=== PATIENT | male | born 1965 | race Caucasian/White ===

== ENCOUNTER 2018-09-15 11:31 | Emergency (ER) | payer MEDICAID, MEDICARE ==
[2018-09-15] MEDS ORDERED: HYDROCODONE/APAP 5/325MG TABLET PO ONE (11:51)
--- NOTE | 2018-09-15 12:02 | Emergency Department Record ---
History of Present Illness - General Chief Complaint: Ankle/Foot Injury Stated Complaint: LEFT LOWER LEG Time Seen by Provider: 09/15/18 11:48 Source: Patient Mode of Arrival: Wheelchair Limitations: No limitations - History of Present Illness Initial Comments: pt states foot and leg collapsed under him last night. it continues to hurt. pt has club feet Complaint: Leg injury, Ankle injury, Foot injury Onset/Timin -: Hour(s) Injury: Leg: Left, Ankle: Left, Foot: Left Type of Injury: Other Place: Home Severity: Mild Severity scale (1-10): 7 Improves With: Nothing Worsens With: Nothing Context: Fall, Walking Associated Symptoms: Swelling, Unable to bear weight - Related Data Previous Rx's Medication Instructions Recorded Hydrocodone/Acetaminophen [[place] 1 each PO Q6HR #12 tablet 09/15/18 5-325 Tablet] Allergies Allergy/AdvReac Type Severity Reaction Status Date / Time No Known Allergies Allergy HYPERSENSIT Verified 09/15/18 11:43 IVITY Travel Screening - Travel/Exposure Within Last 30 Days Have you traveled within the last 30 days?: No - Travel/Exposure Within Last Year Have you traveled outside the [place] in the last year?: No - Additonal Travel Details Have you been exposed to anyone with a communicable illness?: No - Travel Symptoms Symptom Screening: None Review of Systems Reviewed: No additional complaints except as noted below Constitutional: Reports: As per HPI. Denies: Chills, Fever, Malaise, Night sweats, Weakness, Weight change Eyes: Reports: As per HPI. Denies: Eye discharge, Eye pain, Photophobia, Vision change ENT: Reports: As per HPI. Denies: Congestion, Dental pain, Ear pain, Epistaxis , Hearing loss, Throat pain Respiratory: Reports: As per HPI. Denies: Cough, Dyspnea, Hemoptysis, Stridor, Wheezes Cardiovascular: Reports: As per HPI. Denies: Arrhythmia, Chest pain, Dyspnea on exertion, Edema, Murmurs, Orthopnea, Palpitations, Paroxysmal nocturnal dyspnea, Rheumatic Fever, Syncope Endocrine: Reports: As per HPI. Denies: Fatigue, Heat or cold intolerance, Polydipsia, Polyuria Gastrointestinal: Reports: As per HPI. Denies: Abdominal pain, Constipation, Diarrhea, Hematemesis, Hematochezia, Melena, Nausea, Vomiting Genitourinary: Reports: As per HPI. Denies: Dysuria, Frequency, Hematuria, Incontinence, Retention, Testicular pain, Testicular mass, Urgency Musculoskeletal: Reports: As per HPI. Denies: Arthralgia, Back pain, Gout, Joint swelling, Myalgia, Neck pain Skin: Reports: As per HPI. Denies: Bruising, Change in color, Change in hair/ nails, Lesions, Pruritus, Rash Neurological: Reports: As per HPI. Denies: Abnormal gait, Confusion, Headache, Numbness, Paresthesias, Seizure, Tingling, Tremors, Vertigo, Weakness Psychiatric: Reports: As per HPI. Denies: Anxiety, Auditory hallucinations, Depression, Homicidal thoughts, Suicidal thoughts, Visual hallucinations Hematological/Lymphatic: Reports: As per HPI. Denies: Anemia, Blood Clots, Easy bleeding, Easy bruising, Swollen glands Past Medical History - SOCIAL HISTORY Smoking Status: Never smoker Alcohol Use: Occasional Drug Use: None - RESPIRATORY Hx Respiratory Disorders: No - CARDIOVASCULAR Hx Cardio Disorders: Yes Hx Hypertension: Yes Comment:: cholesterol - NEURO Hx Neuro Disorders: No - GI Hx GI Disorders: No - Hx Genitourinary Disorders: No - ENDOCRINE Hx Endocrine Disorders: No Hx Diabetes: No Hx Thyroid Disease: No - MUSCULOSKELETAL Hx Gout: Yes (right foot) Comment:: club feet as infant - PSYCH Hx Psych Problems: Yes Hx Depression: Yes - HEMATOLOGY/ONCOLOGY Hx Hematology/Oncology Disorders: No Family Medical History Any Significant Family History?: No Physical Exam - General General Appearance: Alert, Oriented x3, Cooperative, Mild distress - Head Head exam: Normal inspection - Eye Eye exam: Normal appearance, PERRL, EOMI Pupils: Normal accommodation - ENT ENT exam: Normal exam, Mucous membranes moist, Normal external ear exam, Normal orophraynx Ear exam: Normal external inspection. negative: External canal tenderness Nasal Exam: Normal inspection. negative: Discharge, Sinus tenderness Mouth exam: Normal external inspection, Tongue normal Teeth exam: Normal inspection. negative: Dental caries Throat exam: Normal inspection. negative: Tonsillar erythema, Tonsillar exudate - Neck Neck exam: Normal inspection, Full ROM. negative: Tenderness - Respiratory Respiratory exam: Normal lung sounds bilaterally. negative: Respiratory distress - Cardiovascular Cardiovascular Exam: Regular rate, Normal rhythm, Normal heart sounds - GI/Abdominal GI/Abdominal exam: Soft, Normal bowel sounds. negative: Tenderness - Rectal Rectal exam: Deferred - exam: Deferred - Extremities Extremities exam: Normal capillary refill, Tenderness. negative: Normal inspection, Full ROM Image of Full Body: 1 - tender, ecchymosis, deformity [club feet] - Back Back exam: Reports: Normal inspection, Full ROM. Denies: Muscle spasm, Rash noted, Tenderness - Neurological Neurological exam: Alert, CN II-XII intact, Normal gait, Oriented X3 - Psychiatric Psychiatric exam: Normal affect, Normal mood - Skin Skin exam: Dry, Intact, Normal color, Warm Course Vital Signs 09/15/18 11:34 Temperature 98.4 F Pulse Rate 70 Respiratory 18 Rate Blood Pressure 118/93 Pulse Ox [address] - Reevaluation(s) Reevaluation #1: 09/15/18 13:31 d/w dr barber Disposition Disposition: Discharge Clinical Impression: Bimalleolar fracture of left ankle Qualifiers: Encounter type: initial encounter Fracture type: closed Qualified Code(s): S82.842A - Displaced bimalleolar fracture of left lower leg, initial encounter for closed fracture Disposition: Home, Self-Care Instructions: Ankle Fracture (ED) Additional Instructions: ice and elevate foot. do not bear weight. follow up with dr ambriz office , call today and be seen today or tomorrow. return sooner if worse Prescriptions: Hydrocodone/Acetaminophen [[place] 5-325 Tablet] 1 each PO Q6HR #12 tablet Referrals: KOREY BARBER M.D. [MEDICAL DOCTOR] - Forms: Patient Portal Access Quality - Quality Measures Quality Measures: N/A - Blood Pressure Screening Does Patient Have Any of the Following: No Blood Pressure Classification: Hypertensive Reading Systolic Measurement: 118 Diastolic Measurement: 93 Screening for High Blood Pressure: < Pre-Hypertensive BP, F/U Documented > [ [id number]] Pre-Hypertensive Follow-up Interventions: Follow-up with rescreen every year.
[2018-09-15] MEDS ORDERED: IBUPROFEN 400 MG TABLET PO ONE (13:10)
--- NOTE | 2018-09-17 07:29 | RADIOLOGY REPORT ---
EXAM: FOOT, LEFT 3 VIEWS HISTORY: INJURY. TECHNIQUE: Three views of the left foot were performed. FINDINGS: There is diffuse osteopenia. There is a fracture deformity of the medial malleolus and distal fibula. Diffuse soft tissue swelling. Small calcaneal spur. IMPRESSION: 1. FRACTURE DEFORMITIES OF THE MEDIAL MALLEOLUS AND DISTAL FIBULA. UNDERLYING OSTEOPENIA. SOFT TISSUE SWELLING. 2. CALCANEAL SPUR. JOB NUMBER: [id number] MTDD
--- NOTE | 2018-09-17 07:31 | RADIOLOGY REPORT ---
EXAM: ANKLE LEFT 3 VIEWS HISTORY: FALL. TECHNIQUE: Three views of the left ankle were performed. FINDINGS: Osteopenia. Bimalleolar fracture deformities. There is widening of the medial joint space measuring 8.8 mm. There is soft tissue swelling. IMPRESSION: MINIMALLY DISPLACED BIMALLEOLAR FRACTURE DEFORMITIES. THERE IS WIDENING OF THE MEDIAL JOINT SPACE MEASURING 8.8 MM. THERE IS DIFFUSE SOFT TISSUE SWELLING. JOB NUMBER: [id number] [facility] SHOR[facility]
--- NOTE | 2018-09-17 07:33 | RADIOLOGY REPORT ---
EXAM: LOWER LEG, LEFT HISTORY: PAIN. TECHNIQUE: Two views of the left lower extremity were performed. FINDINGS: Redemonstrated bimalleolar fracture deformities. Soft tissue swelling , left ankle joint. The remainder of the osseous structures are intact. IMPRESSION: BIMALLEOLAR FRACTURE DEFORMITIES. SOFT TISSUE SWELLING. REMAINDER OF THE OSSEOUS STRUCTURES ARE INTACT. JOB NUMBER: [id number] MTDD
== END 2018-09-15 14:10 | disposition home or self-care (01) ==
LOC: ER 11:31
DX: S82.842A Displaced bimalleolar fracture of left lower leg, initial encounter for closed fracture (principal); X50.0XXA Overexertion from strenuous movement or load, initial encounter; Y92.009 Unspecified place in unspecified non-institutional (private) residence as the place of occurrence of the external cause; I10 Essential (primary) hypertension; M21.542 Acquired clubfoot, left foot
CPT/HCPCS: 99283; 99284